=== PATIENT | female | born 1955 | race Caucasian/White ===

== ENCOUNTER 2020-02-25 08:18 | Emergency (ER) | payer BC, MEDICARE ==
[~2020-02-25] VITALS: Ht 162.6 cm; Wt 56.0 kg
[~2020-02-25 08:18] MED LIST: ALPR1TAB2 PO; B12/1TAB SL; CLON0.5T PO; CYAN500L2 SL; DICL100G19 TP; HYDR4TAB48 PO; HYDR8TAB27 PO; LEVO150T SL; LEVO200T PO; LEVO750P7 IV; LEVO750T26 PO; MORP2CAR PO; PHENERGAN PO; PROM50TA4 PO; SERT100T32 PO; SODI20VI2 IV; TEDU5KIT SQ; TRAM50TA2 PO; VENL75CA PO
[2020-02-25] MEDS ORDERED: SODIUM CHLORIDE 0.9% 1,000ML IVBOLUS ONE ×4 (08:30→11:30)
--- NOTE | 2020-02-25 08:37 | NUR ---
PER "WE GOT UP AND HAD OUR MORNING MEDS. WE WENT BACK TO BED. SHE HAD ALMOST HAD A SEIZURE, HER EYE WENT GLAZED. I GOT HER ON THE BED AND A 911 CALL. SHE IS GOING THROUGH NARCOTIC WITHDRAWL. I PREFER SHE STAYS THAT WAY. A WEEK AGO ON FRIDAY SHE GOT IM DILAUDID 2 MG AT [facility]. THE FRIDAY BEFORE SHE GOT 4 MG. SHE HAS HAD SHAKES AND TREMORS. SHE HAS LOOSE BOWELS SOMETIMES WITH HER BOWELS. SHE HAS BEEN DRINKING BUT VERY LITTLE APPETITE. SHE GETS TPN." PT HAS [employer] CATHETER. STATES IT IS FOR TPN AND THYROID MEDICATION. PT PLACED ON CONT PULSE OX,NIBP, SURGICAL TECH. PT HAS C/O V/ FEVERS A "FEW DAYS AGO." NO C/O DYSURIA. EDMD BEDSIDE.
[2020-02-25 08:58] VITALS: BP 95/44
[2020-02-25 09:04] LABS: MEAN CORPUSCULAR HEMOGLOBIN 31.7 pg (27.0-34.8); MEAN CORPUSCULAR HGB CONC 31.5 g/dL (32.4-35.8); MEAN CORPUSCULAR VOLUME 100.6 fL (80-100); MEAN PLATELET VOLUME 10.7 fL (7.4-10.4); PLATELET COUNT 277 x10^3/uL (130-400); RED BLOOD COUNT 2.86 x10^6/uL (3.82-5.3); RED CELL DISTRIBUTION WIDTH 15.9 % (9.6-15.2)
[2020-02-25] MEDS ORDERED: ONDANSETRON 2MG/ML, 2ML ONE (09:08)
[2020-02-25 09:17] LABS: ALANINE AMINOTRANSFERASE 16 U/L (12-78); ALBUMIN 1.5 g/dL (3.4-5.0); ANION GAP 33 mmol/L (5-15); CALCIUM 7.4 mg/dL (8.5-10.1); CHLORIDE 82 mmol/L (98-107); CREATININE 3.42 mg/dL (0.55-1.02)
[2020-02-25 09:27] LABS: ALKALINE PHOSPHATASE 74 U/L (45-117); BILIRUBIN,TOTAL 0.3 mg/dL (0.2-1.0); TOTAL PROTEIN 5.7 g/dL (6.4-8.2)
[2020-02-25] MEDS ORDERED: NOREPINEPHRINE 8 MG in SODIUM CHLORIDE 0.9% 242 ML IV PRN ×2 (09:27→10:30)
[2020-02-25 09:28] LABS: MD YES
[2020-02-25 09:30] LABS: <PLATELET ESTIMATE> ADEQUATE; <PLT MORPHOLOGY> NORMAL PLT MORPH; <RBC MORPHOLOGY> NORMAL; BAND#(MANUAL) 3.31 x10^3/uL; BANDS%(MANUAL) 18 % (0-7); LYMPH#(MANUAL) 1.29 x10^3/uL (1-3.4); LYMPHS% (MANUAL) 7 % (22-44); METAMYELOCYTES# (MANUAL) 0.18 x10^3/uL (0-0); METAMYELOCYTES% (MANUAL) 1 % (0-1); MONOS#(MANUAL) 0.92 x10^3/uL (0.3-2.7); MONOS% (MANUAL) 5 % (2-9); PMNS WITH VACUOLES 1+; SEGS% (MANUAL) 69 % (42-75)
[2020-02-25] MEDS ORDERED: EPINEPHRINE 1 MG/ML, 30ML ONE (09:38)
[2020-02-25] MEDS ORDERED: EPINEPHRINE 1 MG/ML, 1ML ONE (09:38)
[2020-02-25] MEDS ORDERED: AMIODARONE 50 MG/ML, 3ML ONE ×2 (09:38)
[2020-02-25] MEDS ORDERED: CALCIUM CHLORIDE 10%, 10ML SYR ONE (09:38)
[2020-02-25] MEDS ORDERED: SODIUM CHLORIDE 0.9%, 250ML ONE (09:38)
[2020-02-25] MEDS ORDERED: DEXTROSE 5%, 250ML ONE (09:38)
[2020-02-25] MEDS ORDERED: SODIUM BICARB 8.4%, 50ML SYRINGE ONE (09:38)
[2020-02-25 09:50] LABS: FREE T4 (FREE THYROXINE) 0.59 ng/dL (0.76-1.46)
[2020-02-25] MEDS ORDERED: AMIODARONE 450 MG in DEXTROSE 5% 241 ML IV PRN (10:00)
[2020-02-25] MEDS ORDERED: HYDROCORTISONE 100 MG INJ. IVPush SCH (10:00)
[2020-02-25] MEDS ORDERED: EPINEPHRINE 5 MG in SODIUM CHLORIDE 0.9% 245 ML IV PRN (10:00)
[2020-02-25] MEDS ORDERED: ERTAPENEM 1 GM in SODIUM CHLORIDE 0.9% 50 ML IV ONE (10:00)
[2020-02-25] MEDS ORDERED: HYDROCORTISONE 100 MG INJ. ONE (10:08)
[2020-02-25 10:16] LABS: TROPONIN I 0.033 ng/mL (0.000-0.045)
[2020-02-25] MEDS ORDERED: ENOXAPARIN 40 MG/0.4 ML SQ SCH (10:30)
[2020-02-25] MEDS ORDERED: MEROPENEM 500 MG in SODIUM CHLORIDE 0.9% 100 ML IV SCH (10:30)
[2020-02-25] MEDS ORDERED: LABETALOL 5MG/ML, 20ML IVPush PRN (10:30)
[2020-02-25] MEDS ORDERED: POLYETHYLENE GLYCOL 17 GM PACKET PO PRN (10:30)
[2020-02-25] MEDS ORDERED: ENALAPRILAT 1.25 MG/ML, 2ML IVPush PRN (10:30)
[2020-02-25] MEDS ORDERED: morphine SULFATE 10 MG/ML, 1ML IVPush PRN (10:30)
[2020-02-25] MEDS ORDERED: ONDANSETRON 2MG/ML, 2ML IVPush PRN (10:30)
[2020-02-25] MEDS ORDERED: BISACODYL 10 MG SUPP PR PRN (10:30)
[2020-02-25] MEDS ORDERED: ACETAMINOPHEN 325 MG TABLET PO PRN (10:30)
[2020-02-25] MEDS ORDERED: LORazepam 2 MG/ML, 1ML IVPush PRN (10:30)
[2020-02-25] MEDS ORDERED: SODIUM BICARBONATE 8.4% 150 MEQ in DEXTROSE 5% 1,000 ML IV SCH (10:30)
[2020-02-25] MEDS ORDERED: LINEZOLID PMX 600MG/300ML 300 ML IV SCH (10:30)
[2020-02-25] MEDS ORDERED: NS + 40MEQ KCL 1,000 ML IV ONE (10:30)
[2020-02-25] MEDS ORDERED: OXYcodone IR 5MG TABLET PO PRN (10:30)
--- NOTE | 2020-02-25 11:13 | NUR ---
Marco A zamora in [facility] - 02/25/20 at 1114 by DEVAUGHN ADVANCED OG 10 CM
--- NOTE | 2020-02-25 11:14 | NUR ---
ADVANCED OG 10 CM
[2020-02-25] MEDS ORDERED: ADVAIR (11:24)
[2020-02-25] MEDS ORDERED: LEVO100V8 IV (11:24)
[2020-02-25] MEDS ORDERED: TIOT18CA INH (11:24)
[2020-02-25] MEDS ORDERED: PRED20TA PO (11:24)
[2020-02-25] MEDS ORDERED: CLON0.1T22 PO (11:29)
[2020-02-25] MEDS ORDERED: GABA300C PO (11:29)
[2020-02-25] MEDS ORDERED: VASOPRESSIN 20 UNIT in SODIUM CHLORIDE 0.9% 99 ML IV PRN (11:30)
[2020-02-25 11:48] LABS: MICROSCOPIC INDICATED
[2020-02-25 11:51] LABS: CHLORIDE,URINE RANDOM 12 mmol/L; POTASSIUM,URINE RANDOM 44 mmol/L; SODIUM,URINE RANDOM 29 mmol/L
[2020-02-25] MEDS ORDERED: NOREPINEPHRINE 32 MG in SODIUM CHLORIDE 0.9% 218 ML IV PRN (12:00)
--- NOTE | 2020-02-25 12:29 | NUR ---
LATE ENTRY FOR 909: NOTICING CHANGE IN PT MENTATION. AGREES. STATES "THIS IS HOW SHE WAS THIS MORNING." PT STATED "I NEED TO THROW UP." PT GIVEN EMESIS BAG. THIS RN OUT TO GET EDMD.
--- NOTE | 2020-02-25 12:33 | NUR ---
LATE ENTRY FOR 914: PT CONTINUED TO SAY SHE NEEDED TO THROW UP. NO EPISODE OF EMESIS.PT SITTING ON GURNEY. EDMD BEDSIDE BEDSIDE. IVF INFUSING.
--- NOTE | 2020-02-25 12:35 | NUR ---
LATE ENTRY FOR 927: PT CONTINUES TO BECOME LESS RESPONSIVE TO VERBAL COMMAND. PT NOT RESPONSIVE TO THIS RN OR . CODE INITIATED 929
--- NOTE | 2020-02-25 12:36 | NUR ---
LATE ENTRY FOR 1000: SEE CODE SHEET. PT INTUBATED. ET TUBE 7.0 25 AT LIP. MEDICATIONS INITIATED PER ORDER BY EDMD.
--- NOTE | 2020-02-25 16:43 | NUR ---
LATE ENTRY FOR 1100 MEDICATIONS INFUSING. BEDSIDE.
--- NOTE | 2020-02-25 16:43 | NUR ---
LATE ENTRY FOR 1120: CODE INITIATED. SEE CODE SHEET. SEE PRINTED VITAL TRENDS IN CHART.
[2020-02-25] MEDS ORDERED: EPINEPHRINE SYRINGE 0.1 MG/ML, 10ML ONE (19:18)
[2020-02-25] MEDS ORDERED: FAMOTIDINE 20 MG/2 ML IVPush SCH (21:00)
[2020-02-26] MEDS ORDERED: SENNA/DOCUSATE TABLET PO SCH (09:00)
== END 2020-02-25 15:17 ==
LOC: ED 09:21 → EDIP 10:18 → UNDOADMIN 10:18 → ED 15:17
DX: R65.21 Severe sepsis with septic shock (principal); N17.9 Acute kidney failure, unspecified; E87.6 Hypokalemia; I46.9 Cardiac arrest, cause unspecified; J18.9 Pneumonia, unspecified organism; R55 Syncope and collapse; I45.10 Unspecified right bundle-branch block; I44.5 Left posterior fascicular block; I51.7 Cardiomegaly; J44.9 Chronic obstructive pulmonary disease, unspecified; Z87.891 Personal history of nicotine dependence
CPT/HCPCS: 31500; 36415; 36600; 71045; 80053; 81001; 82436; 82533; 82570; 82803; 82962; 83036; 83605; 83735; 84100; 84133; 84145; 84300; 84439; 84443; 84481; 84484; 85025; 87040; 87070; 87077; 87086; 87186; 87205; 92950; 93005; 94002; 96360; 96361; 99291; 99292; J0171; J0282; J7030; J7050; J7060